=== PATIENT | female | born 1990 | race Caucasian/White ===

== ENCOUNTER 2020-03-17 23:00 | Emergency (ER) | payer MEDICAID ==
[~2020-03-17] VITALS: Ht 165.1 cm; Wt 90.9 kg
[2020-03-17 23:12] VITALS: TEMP 98.9
[2020-03-17] MEDS ORDERED: GLUCOPHAGE500 MG/TAB PO (23:17)
[2020-03-17] MEDS ORDERED: GLUCOTROL 5M5 MG/TAB PO (23:17)
[2020-03-18 00:04] LABS: BASO % 0.3 % (0.0-2.0); EOS # 0.1 (0.0-0.7); EOS % 0.5 % (0-4.0); GRAN # 9.5 (1.4-6.5); GRAN % 68.6 % (42.2-75.2); HEMOGLOBIN 12.4 g/dl (12.5-16.0); LYMPH # 3.3 (1.2-3.4); LYMPH % 24.1 % (20.0-51.0); MEAN CELL VOLUME 91 fl (80.0-100.0); MEAN CORPUSCULAR HEMOGLOBIN 30 pg (27.0-31.0); MEAN CORPUSCULAR HGB CONC 33 g/dl (33.0-37.0); MEAN PLATELET VOLUME 9.9 fl (7.4-10.4); MONO # 0.8 (0.1-0.6); MONO % 6.1 % (1.7-9.3); PLATELET COUNT 253 K/mm3 (130-400); RED BLOOD COUNT 4.17 M/mm3 (4.10-5.30); REDCELL DISTRIBUTION WIDTH-CV 13.1 % (11.5-14.5)
[2020-03-18 00:15] LABS: ALANINE AMINOTRANSFERASE 43 U/L (4-34); ALBUMIN 4.5 gm/dL (3.5-5.0); ALKALINE PHOSPHATASE 110 U/L (50-136); ANION GAP 10 mmol/L (7-16); AST,SGOT 37 U/L (15-37); BILIRUBIN,TOTAL 0.5 mg/dL (0.0-1.0); BLOOD UREA NITROGEN 13 mg/dL (7-17); CALCIUM 9.4 mg/dL (8.4-10.2); CARBON DIOXIDE 28 mmol/L (22-30); CHLORIDE 99 mmol/L (98-107); CREATININE, serum 0.76 (0.52-1.25); GLUCOSE 251 mg/dL (74-106); POTASSIUM 3.7 mmol/L (3.4-5.0); SODIUM 137 mmol/L (137-145); TOTAL PROTEIN 8.2 gm/dL (6.4-8.2)
[2020-03-18 00:27] LABS: TROPONIN-I < 0.012 ng/mL (0.000-0.035)
[2020-03-18 00:51] VITALS: BP 108/77; PULSE 96
[2020-03-18] MEDS ORDERED: NAPROXEN 3375 MG/TAB PO (01:05)
[2020-03-18] MEDS ORDERED: FLEXERIL 1010 MG/TAB PO (01:05)
== END 2020-03-18 01:12 | disposition home or self-care (01) ==
LOC: COL.ER 23:00
PROVIDERS: Emergency Medicine
DX: R07.89 Other chest pain (principal); E11.9 Type 2 diabetes mellitus without complications; E66.9 Obesity, unspecified; Z68.33 Body mass index [BMI] 33.0-33.9, adult; Z82.49 Family history of ischemic heart disease and other diseases of the circulatory system; Z79.84 Long term (current) use of oral hypoglycemic drugs
CPT/HCPCS: J1885

== ENCOUNTER 2020-12-06 06:44 | Emergency (ER) | payer MEDICAID ==
[~2020-12-06] VITALS: Ht 162.6 cm; Wt 95.0 kg
[~2020-12-06 06:44] MED LIST: FLEXERIL 1010 MG/TAB PO; GLUCOPHAGE500 MG/TAB PO; GLUCOTROL 5M5 MG/TAB PO; NAPROXEN 3375 MG/TAB PO
[2020-12-06 07:03] VITALS: TEMP 97.9
[2020-12-06 07:37] LABS: COLLECTION METHOD CLEAN CATCH
[2020-12-06 07:46] LABS: BASO % 0.4 % (0.0-2.0); EOS # 0.1 (0.0-0.7); EOS % 0.8 % (0-4.0); GRAN # 6.7 (1.4-6.5); GRAN % 60.3 % (42.2-75.2); HEMATOCRIT 38.1 % (37.0-47.0); HEMOGLOBIN 12.2 g/dl (12.5-16.0); LYMPH # 3.4 (1.2-3.4); LYMPH % 30.2 % (20.0-51.0); MEAN CELL VOLUME 88 fl (80.0-100.0); MEAN CORPUSCULAR HEMOGLOBIN 28 pg (27.0-31.0); MEAN CORPUSCULAR HGB CONC 32 g/dl (33.0-37.0); MEAN PLATELET VOLUME 9.9 fl (7.4-10.4); MONO # 0.9 (0.1-0.6); PLATELET COUNT 241 K/mm3 (130-400); RED BLOOD COUNT 4.32 M/mm3 (4.10-5.30); REDCELL DISTRIBUTION WIDTH-CV 14.4 % (11.5-14.5)
[2020-12-06 07:52] LABS: MUCOUS Present /lpf; PH 6 (5-8); SQUAMOUS EPITHELIAL 0-2 /hpf; URINE APPEARANCE Clear; URINE BACTERIA None Seen /hpf; URINE BILIRUBIN Negative (NEGATIVE); URINE BLOOD 3+ (NEGATIVE); URINE COLOR Straw; URINE GLUCOSE 3+ (NEGATIVE); URINE KETONE Negative (NEGATIVE); URINE LEUKOCYTE ESTERASE Negative (NEGATIVE); URINE NITRATE Negative (NEGATIVE); URINE PROTEIN(semi-quant) Negative (NEGATIVE); URINE RBC 20-50 /hpf; URINE UROBILINOGEN Negative (NEGATIVE)
[2020-12-06 07:57] LABS: ALBUMIN 3.9 gm/dL (3.5-5.0); BILIRUBIN,TOTAL 0.3 mg/dL (0.0-1.0); CALCIUM 9.3 mg/dL (8.4-10.2); CREATININE, serum 0.53 (0.52-1.25); POTASSIUM 3.7 mmol/L (3.4-5.0); TOTAL PROTEIN 7.5 gm/dL (6.4-8.2)
[2020-12-06 08:21] VITALS: BP 121/69; PULSE 84
== END 2020-12-06 08:18 | disposition home or self-care (01) ==
LOC: COL.ER 06:44
PROVIDERS: Emergency Medicine
DX: N93.9 Abnormal uterine and vaginal bleeding, unspecified (principal); E11.9 Type 2 diabetes mellitus without complications; Z32.02 Encounter for pregnancy test, result negative; Z79.84 Long term (current) use of oral hypoglycemic drugs

== ENCOUNTER 2021-07-02 22:04 | Emergency (ER) | payer MEDICAID ==
[2021-07-02 22:09] VITALS: TEMP 97.6
[2021-07-02 23:00] VITALS: BP 127/77; PULSE 88
== END 2021-07-02 23:20 | disposition home or self-care (01) ==
LOC: COL.ER 22:04
DX: M25.532 Pain in left wrist (principal); R20.2 Paresthesia of skin; E11.9 Type 2 diabetes mellitus without complications

== ENCOUNTER 2021-08-16 19:35 | Emergency (ER) | payer MEDICAID ==
[~2021-08-16] VITALS: Ht 162.6 cm; Wt 54.5 kg
[2021-08-16 19:56] VITALS: BP 144/81; TEMP 98.4
[2021-08-16] MEDS ORDERED: AMOXICILLIN 50500 MG PO (20:27)
[2021-08-16 20:55] VITALS: PULSE 87
== END 2021-08-16 20:55 | disposition home or self-care (01) ==
LOC: COL.ER 19:35
DX: K04.7 Periapical abscess without sinus (principal)

== ENCOUNTER → 2021-08-17 | Emergency (ER) | payer MEDICAID ==
[~2021-08-17] MED LIST changes: +AMOXICILLIN 50500 MG PO; +CLEOCIN HCL300 MG PO
== END ==
LOC: COL.ER 01:01
DX: R69 Illness, unspecified (principal)

== ENCOUNTER 2021-08-18 20:23 | Emergency (ER) | payer MEDICAID ==
[~2021-08-18] VITALS: Ht 162.6 cm; Wt 95.5 kg
[~2021-08-18 20:23] MED LIST changes: -CLEOCIN HCL300 MG PO
[2021-08-18 20:30] VITALS: TEMP 98.7
[2021-08-18] MEDS ORDERED: CLEOCIN HCL300 MG PO (21:15)
[2021-08-18 21:25] VITALS: BP 114/79; PULSE 75
== END 2021-08-18 21:25 | disposition home or self-care (01) ==
LOC: COL.ER 20:23
DX: K04.7 Periapical abscess without sinus (principal)